=== PATIENT | female | born 1995 | race Caucasian/White ===

== ENCOUNTER 2019-05-30 20:43 | Emergency (ER) | payer OTHER ==
[2019-05-30] MEDS ORDERED: Acetaminophen 500 MG TAB ONE (21:29)
--- NOTE | 2019-05-30 22:13 | RAD ---
EXAM: Chest PA and lateral: HISTORY: Cough. Flulike symptoms. COMPARISON: None. FINDINGS: Heart: Normal cardiac silhouette Aorta: Unremarkable Pulmonary vessels: Normal Costophrenic angles: Costophrenic angles are clear. Lungs: No consolidation or masses. Pneumothorax: No pneumothorax Osseous structures: No osseous abnormalities IMPRESSION: No acute cardiopulmonary process.
== END 2019-05-30 22:31 | disposition home or self-care (01) ==
LOC: ERS 20:43
DX: R05 Cough (principal); R50.9 Fever, unspecified; Z20.828 Contact with and (suspected) exposure to other viral communicable diseases
CPT/HCPCS: 71046